=== PATIENT | female | born 1970 | race Caucasian/White ===

== ENCOUNTER 2021-12-02 23:03 | Inpatient (IN) | payer OTHER ==
[~2021-12-02] VITALS: Ht 167.6 cm; Wt 65.8 kg
--- NOTE | 2021-12-02 23:14 | NUR ---
PT BIBS C/O PALPITATIONS SINCE 10PM WITH NECK BACK AND SHOULDER PAIN. PATIENT TOOK PEPCID AND ALIEVE PIT HAND. PATIENT ALERT AND ORIENTED X4. AMBULATORY WITH NON LABORED BREATHING. PLACE PT IN BED 11 ON MONITOR AND POX.
[2021-12-02] MEDS ORDERED: KETOROLAC TROMETHAMINE INJ 30 MG/ML VIAL ONE (23:15)
[2021-12-02] MEDS ORDERED: DILTIAZEM HCL 25 MG IV ONE (23:24)
[2021-12-02] MEDS ORDERED: ASPIRIN 325 MG TABLET ONE (23:24)
[2021-12-02] MEDS ORDERED: DILTIAZEM HCL 50 MG IV IV ONE (23:30)
[2021-12-02] MEDS ORDERED: ASPIRIN 325 MG TABLET PO ONE (23:30)
[2021-12-02] MEDS ORDERED: KETOROLAC TROMETHAMINE INJ 30 MG/ML VIAL IV ONE (23:30)
[2021-12-02 23:44] LABS: BASOPHILS # (AUTO) 0.1 K/uL (0.0-0.2); BASOPHILS % (AUTO) 0.7 % (0.0-2.0); EOSINOPHILS % (AUTO) 1.8 % (0.0-6.0); HEMATOCRIT 43 % (33-45); HEMOGLOBIN 14.6 g/dL (11.5-14.8); LYMPHOCYTES # (AUTO) 2.9 K/uL (0.8-4.8); LYMPHOCYTES % (AUTO) 37.6 % (20.0-44.0); MEAN CORPUSCULAR HGB CONC 34 g/dl (31.0-36.0); MEAN CORPUSCULAR VOLUME 93 fL (82-100); MONOCYTES # (AUTO) 0.7 K/uL (0.1-1.30); MONOCYTES % (AUTO) 9.6 % (2.0-12.0); NEUTROPHILS # (AUTO) 3.9 K/uL (1.8-8.9); NEUTROPHILS % (AUTO) 50.3 % (43.0-81.0); PLATELET COUNT (AUTO) 168 K/uL (150-450); RED BLOOD CELL COUNT(AUTO) 4.66 MIL/uL (4.0-5.2); WHITE BLOOD COUNT (AUTO) 7.7 K/uL (4.3-11.0)
[2021-12-02 23:54] LABS: CALCIUM, SERUM 9.3 mg/dL (8.5-10.1); CARBON DIOXIDE 27 mmol/L (21-32); CHLORIDE 100 mmol/L (98-107); CREATININE 0.8 mg/dL (0.6-1.3); GLUCOSE 115 mg/dL (74-106); POTASSIUM 3.1 mmol/L (3.5-5.1); SODIUM SERUM 139 mmol/L (136-145); UREA NITROGEN, BLOOD 13 mg/dL (7-18)
[2021-12-03] LABS: ALANINE AMINOTRANSFERASE 29 U/L (12-78); ALBUMIN 4.1 g/dL (3.4-5.0); ALKALINE PHOSPHATASE 86 U/L (46-116); ASPARTATE AMINOTRANSFERASE 17 U/L (15-37); BILIRUBIN,DIRECT 0.1 mg/dL (0.0-0.2); BILIRUBIN,TOTAL 0.3 mg/dL (0.2-1.0); TOTAL PROTEIN, SERUM 7.8 g/dL (6.4-8.2)
[2021-12-03 00:07] LABS: D-DIMER 0.19 mg/L(FEU (0.17-0.50)
[2021-12-03] MEDS ORDERED: DILTIAZEM HCL 50 MG IV ONE (00:10)
[2021-12-03] MEDS ORDERED: POTASSIUM CHLORIDE 20 MEQ TAB.PRT.SR PO ONE ×2 (00:28→00:30)
[2021-12-03] MEDS ORDERED: IV NS 0.9% 1,000 ML BAG IV ONE (00:30)
[2021-12-03] MEDS ORDERED: HYDROCODONE/APAP 5/325MG TABLET PO PRN (01:00)
[2021-12-03] MEDS ORDERED: MAG HYDROX/AL HYDROX/SIMETH 30 ML UDC PO PRN (01:00)
[2021-12-03] MEDS ORDERED: ONDANSETRON HCL/PF 4 MG/2 ML VIAL IVP PRN (01:00)
[2021-12-03] MEDS ORDERED: MAGNESIUM HYDROXIDE 30 ML UDC PO PRN (01:00)
[2021-12-03] MEDS ORDERED: Z GUARD REMEDY 4 OZ OINT TP PRN (01:00)
[2021-12-03] MEDS ORDERED: ENOXAPARIN SODIUM 40 MG/0.4 ML DISP.SYRIN SQ SCH (01:00)
[2021-12-03] MEDS ORDERED: ACETAMINOPHEN 325 MG TABLET PO PRN (01:00)
[2021-12-03] MEDS ORDERED: ZOLPIDEM TARTRATE 5 MG TABLET PO PRN (01:00)
--- NOTE | 2021-12-03 01:00 | NUR ---
CARDIZEM TITRATED TO 10MG/HR. HEART RATE 141BPM, BP 109/73
--- NOTE | 2021-12-03 01:00 | NUR ---
non admin lovenox 40mg, unverified medication
[2021-12-03] MEDS ORDERED: DILTIAZEM HCL IV 125 MG in IV NS 0.9% 100 ML IV PRN ×2 (02:30)
[2021-12-03] MEDS ORDERED: PANTOPRAZOLE 40 MG TABLET.DR PO SCH (07:30)
[2021-12-03] MEDS ORDERED: METO25TA4 PO (07:37)
[2021-12-03] MEDS ORDERED: PANTOPRAZOLE 40 MG TABLET.DR PO ONE (07:51)
[2021-12-03] MEDS ORDERED: ASPIRIN 81 MG TAB.CHEW ONE (07:51)
[2021-12-03] MEDS: ASPIRIN 81 MG TAB.CHEW PO SCH (08:05)
[2021-12-03] MEDS ORDERED: ATORVASTATIN 10 MG TABLET ONE (08:17)
[2021-12-03] MEDS ORDERED: ENOXAPARIN SODIUM 60 MG/0.6 ML DISP.SYRIN SQ ONE (08:17)
[2021-12-03] MEDS: ENOXAPARIN SODIUM 60 MG/0.6 ML DISP.SYRIN SQ SCH ×3 (08:18→20:27)
[2021-12-03] MEDS: ATORVASTATIN 10 MG TABLET PO SCH ×2 (08:18→09:00)
[2021-12-03] MEDS: METOPROLOL TARTRATE 50 MG TABLET PO SCH ×4 (12:00→14:30)
[2021-12-03] MEDS ORDERED: METOPROLOL TARTRATE 50 MG TABLET ONE (12:50)
--- NOTE | 2021-12-03 13:00 | NUR ---
PER DR HARE, PATIENT CAN BE DOWNLOADED TO TELEMETRY, NURSING SEMICOND[employer]CTOR PACKAGES PLATEMAKER AWARE Addendum: 12/03/21 at [address] HARE, PATIENT CAN BE DOWNGRADED TO TELEMETRY, NURSING [employer]ICOND[employer]CTOR PACKAGES PLATEMAKER AWARE
--- NOTE | 2021-12-03 13:40 | NUR ---
DR HAYES AWARE OF TROPONIN 2.069
[2021-12-03] MEDS ORDERED: NITROGLYCERIN 0.4 MG/TAB BOTTLE ONE (14:01)
[2021-12-03] MEDS ORDERED: IV NS 0.9% 250 ML IV ONE (14:01)
[2021-12-03] MEDS ORDERED: IOHEXOL-350 100 ML VIAL IV ONE (14:01)
[2021-12-03] MEDS ORDERED: CT SWABBABLE VALVE TRANS SET 1 EA INFUS.SET MC ONE (14:01)
[2021-12-03] MEDS ORDERED: METOPROLOL TARTRATE INJ 5 MG/5 ML AMPUL ONE (14:02)
[2021-12-03] MEDS ORDERED: NITROGLYCERIN 0.4 MG/TAB BOTTLE SL ONE (14:30)
[2021-12-03] MEDS ORDERED: METOPROLOL TARTRATE INJ 5 MG/5 ML AMPUL IVP PRN (14:30)
--- NOTE | 2021-12-03 14:33 | NUR ---
consented to CTA heart; AOx4; metoprolol 5 mg IVPx 3 doses every 5 minutes and NTG 0.04 mg Sl given, tolerated procedure; sent back to ER via wheelchair
--- NOTE | 2021-12-03 15:39 | NUR ---
REPORT GIVEN TO TUAN MANLEY FOR JESSICA
[2021-12-03 16:00] VITALS: BP 140/92
--- NOTE | 2021-12-03 16:45 | NUR ---
[employer]NAM[employer] CONSULTANT OPENING NOTES RECEIVED Pt AWAKE. A/Ox4. Pt IS ON ROOM AIR AND TOLERATING WELL. Pt IS AMBULATORY. NO COMPLAINTS OF PAIN OR SIGNS OF DISTRESS AT THIS TIME. SAFETY MEASURES ARE IN PLACE. BED IS LOCKED AND IN LOWEST POSITION. SIDE RAILS UP x2. CALL LIGHT ND BED SIDE TABLE ARE WITHIN REACH. WILL CONTINUE TO MONITOR.
--- NOTE | 2021-12-03 19:02 | NUR ---
KETTLE GIRL CLOSING NOTES Pt IS AWAKE IN BED AND RESTING. Pt IS A/Ox4 AND ON ROOM AIR TOLERATING WELL. NO SIGNS OF RESPIRATORY DISTRESS AT THIS TIME, NO COMPLAINTS OF PAIN MADE. NO CHEST PAIN OR DISCOMFORT EXPRESSED BY Pt. Pt HAS A L AC ACCESS AND A R AC ACCESS. BOTH ARE PATENT AND INTACT. SAFETY MEASURES ARE IN PLACE: BED IS LOCKED AND IN LOWEST POSITION, SIDE RAILS UP x 2. CALL LIGHT AND BED SIDE TABLE ARE WITHIN REACH. WILL ENDORSE TO ONCOMING SHIFT.
[2021-12-03 20:00] VITALS: BP 129/77
--- NOTE | 2021-12-03 20:00 | NUR ---
RN OPENING NOTES Patient is A&Ox4. In bed watching TV. States that she feels much better than earlier and is no longer feeling any palpitations. HR is 70s on monitor. No signs of distress. Will continue to monitor.
[2021-12-03 22:37] LABS: THYROID STIMULATING HORMONE 4.158 uIU/mL (0.358-3.74)
[2021-12-04] VITALS: BP 132/80
--- NOTE | 2021-12-04 00:29 | NUR ---
consent for CTCA and contrast obtained and put in chart Addendum: 12/04/21 at 0305 by ABRIL NICHOLAS RN *wrong patient*
[2021-12-04 04:00] VITALS: BP 135/84
[2021-12-04 05:00] VITALS: BP 135/84
--- NOTE | 2021-12-04 06:54 | NUR ---
RN CLOSING NOTES Patient has been A&Ox4 overnight. slept well. Has been SR in 90s overnight. LAC #18G and RAC #20G PIVs intact and patent -saline flushed. No overnight events. Patient reports feeling "fine."
[2021-12-04 07:28] LABS: BASOPHILS % (AUTO) 0.6 % (0.0-2.0); EOSINOPHILS % (AUTO) 1.7 % (0.0-6.0); HEMATOCRIT 42 % (33-45); HEMOGLOBIN 14.4 g/dL (11.5-14.8); LYMPHOCYTES # (AUTO) 1.8 K/uL (0.8-4.8); LYMPHOCYTES % (AUTO) 26.8 % (20.0-44.0); MEAN CORPUSCULAR HGB CONC 34 g/dl (31.0-36.0); MEAN CORPUSCULAR VOLUME 93 fL (82-100); MONOCYTES # (AUTO) 0.7 K/uL (0.1-1.30); MONOCYTES % (AUTO) 10.2 % (2.0-12.0); NEUTROPHILS # (AUTO) 4.1 K/uL (1.8-8.9); NEUTROPHILS % (AUTO) 60.7 % (43.0-81.0); PLATELET COUNT (AUTO) 157 K/uL (150-450); RED BLOOD CELL COUNT(AUTO) 4.53 MIL/uL (4.0-5.2); WHITE BLOOD COUNT (AUTO) 6.7 K/uL (4.3-11.0)
--- NOTE | 2021-12-04 07:30 | NUR ---
ms rn received on bed, awake,alert,oriented x4,not in any form of distress, respirations even and unlabored,no sob noted, lungs are clear,abdomen soft,positive bowel sounds,denies pain at this time,all needs attended.
[2021-12-04 07:46] LABS: ALBUMIN 3.6 g/dL (3.4-5.0); BILIRUBIN,TOTAL 0.6 mg/dL (0.2-1.0); CREATININE 0.7 mg/dL (0.6-1.3); MAGNESIUM 2.5 mg/dL (1.8-2.4); PHOSPHORUS 4.3 mg/dL (2.5-4.9); POTASSIUM 3.7 mmol/L (3.5-5.1); TOTAL PROTEIN, SERUM 7.4 g/dL (6.4-8.2)
[2021-12-04 08:06] LABS: THYROID STIMULATING HORMONE 3.262 uIU/mL (0.358-3.74)
[2021-12-04 08:36] VITALS: BP 132/91
[2021-12-04] MEDS ORDERED: METOPROLOL TARTRATE 50 MG TABLET PO SCH (09:00)
--- NOTE | 2021-12-04 09:20 | NUR ---
ms hough breakfast served,due meds given,tolerated well.
[2021-12-04] MEDS ORDERED: ASPI-1169 PO (09:22)
[2021-12-04] MEDS ORDERED: METO50TA16 PO (09:22)
[2021-12-04] MEDS: ASPIRIN 81 MG TAB.CHEW PO SCH (09:45)
[2021-12-04 09:47] VITALS: BP 132/91
--- NOTE | 2021-12-04 10:00 | NUR ---
ms rn was seen by memo boggs/ maday to go home today.
--- NOTE | 2021-12-04 16:06 | NUR ---
ms rn instructions given and understood,patient went home, will get her meds in her pharmacy, to have a follow up w/ dr. stanley in one week.
== END 2021-12-04 16:00 | disposition home or self-care (01) | DRG 281 ==
LOC: ER 23:07 → TRANSITION 12-03 01:58 → TELE 12-03 15:36 → MED 12-04 09:38
PROVIDERS: ADMIT Student in an Organized Health Care Education/Training Program; ATTEND Internal Medicine
DX: I48.0 Paroxysmal atrial fibrillation (principal); I21.4 Non-ST elevation (NSTEMI) myocardial infarction; D68.59 Other primary thrombophilia; E87.6 Hypokalemia; K21.9 Gastro-esophageal reflux disease without esophagitis; Z20.822 Contact with and (suspected) exposure to COVID-19
CPT/HCPCS: 36415; 71045-TC; 75574; 80048-TC; 80053-TC; 80061-TC; 80076-TC; 83735-TC; 84100-TC; 84439-TC; 84443-TC; 84484-TC; 85025-TC; 85378-TC; 85730-TC; 87081-TC; 93307-TC; C9803; G0378; J1650; J1885; J2405; J3490; J7030; J7050; Q9967